=== PATIENT | male | born 1960 | race Caucasian/White ===

== ENCOUNTER 2022-05-04 16:58 | Emergency (ER) | payer OTHER ==
[~2022-05-04] VITALS: Ht 180.3 cm; Wt 77.1 kg
--- NOTE | 2022-05-04 17:00 | NUR ---
MD at bedside, medical screening exam in progress.
[2022-05-04] MEDS ORDERED: CEphaleXIN 500 MG CAPSULE ONE (17:26)
[2022-05-04] MEDS ORDERED: KETOROLAC TROMETHAMINE 30 MG INJ ONE (17:26)
[2022-05-04] MEDS ORDERED: SULFAMETH/TRIMETH 800/160 MG TABLET ONE (17:27)
[2022-05-04] MEDS ORDERED: KETOROLAC TROMETHAMINE 30 MG INJ IM ONE (17:30)
[2022-05-04] MEDS ORDERED: CEphaleXIN 500 MG CAPSULE PO ONE (17:30)
[2022-05-04] MEDS ORDERED: SULFAMETH/TRIMETH 800/160 MG TABLET PO ONE (17:30)
[2022-05-04] MEDS ORDERED: CEPH500C2 PO (17:33)
[2022-05-04] MEDS ORDERED: SULF1TAB48 PO (17:33)
[2022-05-04 17:46] VITALS: BP 130/85
--- NOTE | 2022-05-04 17:46 | NUR ---
Patient discharged to home in stable condition. Written and verbal after care instructions given. Patient verbalizes understanding of instructions. Stressed follow up or return to ER for worsening s/s.
== END 2022-05-04 17:47 | disposition home or self-care (01) ==
LOC: ER 16:58
DX: L03.115 Cellulitis of right lower limb (principal)
CPT/HCPCS: 96372; 99283; J1885; A4663